=== PATIENT | female | born 1970 | race Caucasian/White ===

== ENCOUNTER → 2016-06-14 | Outpatient (CLI) | payer BC, OTHER ==
--- NOTE | 2016-06-14 09:23 | REP ---
MRI CERVICAL SPINE WITHOUT CONTRAST: HISTORY: Neck and bilateral shoulder pain. A disc bulge is present at the C5-6 level. There is mild effacement of the thecal sac without spinal cord compression. Bilateral uncinate process hypertrophy is present. This produces minimal and moderate narrowing of the right and left C5 neural foramina respectively. A disc bulge is present at the C6-7 level. There is mild effacement of the thecal sac without spinal cord compression. Uncinate process hypertrophy is present on the left. This produces mild narrowing of the left C6 neural foramen. The right C6 neural foramen is patent. There is no other disc bulge or herniation. The remaining neural foramina are patent. The spinal cord is normal in signal intensity. There is no intradural extramedullary lesion. Normal signal intensity is present in the cervical vertebral bodies. There is loss of the normal lordotic curve. A 2 cm focus of increased signal intensity on T2-weighted images is present in the right thyroid lobe. This may represent a cyst. The left thyroid lobe is normal. IMPRESSION: 1. There is cervical spondylosis at the C5-6 and C6-7 levels without spinal cord compression. 2. There is a 2 cm focus of increased signal intensity in the right thyroid lobe. This may represent a cyst. Ultrasound may be helpful for further evaluation. Signed by Tommy Nix MD 06/14/2016 09:39 A
== END ==
LOC: M RAD 07:18
PROVIDERS: ATTEND Orthopaedic Surgery
DX: M54.12 Radiculopathy, cervical region (principal)

== ENCOUNTER → 2016-11-15 | Outpatient (CLI) | payer BC, OTHER ==
--- NOTE | 2016-11-16 04:53 | REP ---
Clinical: Menorrhagia . Technique: Transabdominal pelvic ultrasound followed by transvaginal examination for better evaluation of the endometrium and adnexa with color Doppler evaluation of the ovaries. Findings: Bladder is unremarkable and measures 12.8 x 10.1 x 7.3 cm . A left deviated uterus measures 11.2 x 4.3 x 6.5 cm. The endometrial complex measures 5.4 mm thickness. Nabothian cysts in the cervix measure up to 16 mm. The endometrial complex appears normal. Bilateral ovaries are normal in appearance. Right ovary measures 2.7 x 1.6 x 2.5 cm. Left ovary measures 2.6 x 1.5 x 2.4 cm. No pelvic fluid or adnexal mass lesions. Impression: 1. Few Nabothian cysts up to 1.6 cm diameter. 2. Otherwise normal pelvic ultrasound. Signed by Enrique Parker MD 11/16/2016 04:44 A
== END ==
LOC: M WHC 13:52
PROVIDERS: ATTEND Nurse Practitioner Women's Health
DX: N88.8 Other specified noninflammatory disorders of cervix uteri (principal)

== ENCOUNTER → 2016-11-16 | Outpatient (REF) | payer OTHER | LOC: M SFHCCAPE 09:41 → M SFHCCLAY 10:31 | PROVIDERS: ATTEND Physician Assistant | DX: E78.00 Pure hypercholesterolemia, unspecified (principal) ==

== ENCOUNTER → 2016-11-30 | Outpatient (REF) | payer OTHER ==
[~2016-11-30] MED LIST: ACET30TAB PO; IBUP-1114 PO; IBUP80TA PO; LORA10TA2 PO; MULT1TAB10 PO; ROSU5TAB PO; VITA100067 PO
[2016-11-30 18:12] LABS: ALBUMIN 3.2 GM/DL (3.2-5.2); ALBUMIN/GLOBULIN RATIO 0.86 (1.00-1.93); ALKALINE PHOSPHATASE 49 U/L (45-117); ALT/SGPT 19 U/L (12-78); ANION GAP 7 MEQ/L (8-16); AST/SGOT 23 U/L (15-37); BILIRUBIN,TOTAL 0.5 MG/DL (0.2-1.0); BLOOD UREA NITROGEN 11 MG/DL (7-18); CALCIUM LEVEL 8.3 MG/DL (8.5-10.1); CARBON DIOXIDE LEVEL 25 MEQ/L (21-32); CHLORIDE LEVEL 107 MEQ/L (98-107); CHOLESTEROL LEVEL 175 MG/DL (<200); CREATININE FOR GFR 0.79 MG/DL (0.55-1.02); GLOMERULAR FILTRATION RATE > 60.0 (>58); GLUCOSE, FASTING 82 MG/DL (70-105); SODIUM LEVEL 139 MEQ/L (136-145); TOTAL PROTEIN 6.9 GM/DL (6.4-8.2); TRIGLYCERIDES LEVEL 117 MG/DL (<150)
[2016-11-30 18:14] LABS: POTASSIUM SERUM 4.6 MEQ/L (3.5-5.1)
== END ==
LOC: M SFHCCAPE 07:32
PROVIDERS: ATTEND Physician Assistant
DX: E78.00 Pure hypercholesterolemia, unspecified (principal)

== ENCOUNTER 2017-02-07 07:56 | Day surgery (SDC) | payer BC, OTHER ==
[~2017-02-07] VITALS: Ht 157.5 cm; Wt 114.8 kg
[~2017-02-07 07:56] MED LIST changes: -ACET30TAB PO; -IBUP80TA PO
[2017-02-07] MEDS ORDERED: LR 1,000 ML IV ONE (08:00)
[2017-02-07] MEDS ORDERED: MIDAZOLAM INJ 2 MG/2 ML VIAL (J2250) As Ordered ONE (09:08)
[2017-02-07] MEDS ORDERED: fentaNYL 100 MCG/2 ML INJECTION (J3010) As Ordered ONE (09:08)
[2017-02-07 09:13] LABS: CONTROL LINE UCG INT CTR LINE PRESENT
[2017-02-07 09:53] LABS: MEAN CORPUSCULAR HEMOGLOBIN 29.6 pg (27.0-33.0); MEAN CORPUSCULAR HGB CONC 33.7 g/dl (32.0-36.5); MEAN CORPUSCULAR VOLUME 87.6 fl (80.0-96.0); RED CELL DISTRIBUTION WIDTH 13.8 % (11.5-14.5); WHITE BLOOD COUNT 5.9 K/mm3 (4.0-10.0)
[2017-02-07] MEDS: LIDOCAINE 1% MDV 20ML VIAL As Ordered ONE (09:55)
[2017-02-07] MEDS ORDERED: dexameTHASONE 4 MG/ML 1ML VIAL (J1100) As Ordered ONE (10:20)
[2017-02-07] MEDS ORDERED: ONDANSETRON 4MG/2ML VIAL (J2405) As Ordered ONE (10:20)
[2017-02-07] MEDS ORDERED: KETOROLAC 60 MG/2 ML VIAL (J1885) As Ordered ONE (10:20)
[2017-02-07] MEDS ORDERED: PROPOFOL 200 MG/20 ML VIAL As Ordered ONE (10:20)
[2017-02-07] MEDS ORDERED: LIDOCAINE 2% INJ 100 MG/5 ML SDV (FOR ANES.) As Ordered ONE (10:20)
[2017-02-07] MEDS: SILVER NITRATE APPLICATOR As Ordered ONE (10:58)
[2017-02-07] MEDS ORDERED: HYDROmorphone HCL 1 MG/ML SYRINGE (J1170) IV PRN (11:15)
[2017-02-07] MEDS ORDERED: PERCOCET 5MG/325MG TAB PO PRN (11:15)
[2017-02-07] MEDS ORDERED: fentaNYL 100 MCG/2 ML INJECTION (J3010) IV PRN (11:15)
[2017-02-07] MEDS ORDERED: ONDANSETRON 4MG/2ML VIAL (J2405) IV PRN (11:15)
[2017-02-07] MEDS ORDERED: LR 1,000 ML IV SCH ×2 (11:15)
[2017-02-07] MEDS ORDERED: IBUP80TA PO (11:21)
[2017-02-07] MEDS ORDERED: ACET30TAB PO (11:22)
[2017-02-07 13:00] VITALS: BP 163/88
--- NOTE | 2017-02-07 13:59 | RO ---
DATE OF PROCEDURE: 02/07/2017 PREOPERATIVE DIAGNOSIS: Abnormal uterine bleeding. POSTOPERATIVE DIAGNOSES: 1. Abnormal uterine bleeding. 2. Intrauterine mass approximately 2 cm, pale white with vascularity (anterior , mid body of intrauterine cavity) Product Support Engineer image taken. PROCEDURE PERFORMED: 1. Diagnostic hysteroscopy converted to hysteroscopic morcellation with the MyoSure device 2. Dilation and curettage. 3. Mirena IUD insertion. SURGEON: Delmer Farrell DO, FACOG. MILL OPERATOR: None. ANESTHESIA: General via laryngeal mask anesthesia (LMA). SPECIMENS SENT TO PATHOLOGY: 1. Intrauterine mass (morcellated) 2. Endometrial curettings. ESTIMATED BLOOD LOSS: 20 mL FLUIDS REPLACED: IV lactated Ringer's 1 liter. HYSTEROSCOPIC FLUID DEFICIT: 350 mL. DRAINS: In-and-out catheter 750 mL urine output. COMPLICATIONS: None. PREOPERATIVE ANTIBIOTICS: None indicated. Lot number of the Mirena IUD: [id number]. INTRAOPERATIVE FINDINGS 1. Uterus sounded to 10 cm. 2. Intrauterine mass. Anterior mid-body of cavity, approximately 2 cm grossly (pale with vascularity). 3. IUD strings cut 3 cm from the external cervical os. INDICATION: The patient is a 46-year-old with a history of abnormal uterine bleeding. The decision was made to proceed with diagnostic, possible operative hysteroscopy and insertion of the Mirena IUD. DESCRIPTION OF PROCEDURE: The patient was counseled and consented on the risks, benefits, indications and alternatives of the procedure. Informed consent was obtained. She was taken to the operating room with an IV running and placed on operating table in the dorsal supine position. A general anesthesia was administered and the airway secured without any difficult. The patient was placed in the high lithotomy position. She was prepared and draped in normal sterile fashion. A time-out was performed per protocol. The bladder was drained with a sterile in-and-out catheter and a sterile speculum placed for good visualization of the cervix. The anterior lip of the cervix was grasped with single-tooth tenaculum and downward traction was applied. The cervix was then sequentially dilated with Oren dilators up to a number 12. The hysteroscope was placed transcervically into the intrauterine cavity with the findings noted above. The MyoSure Lite device was placed transcervically into the intrauterine cavity through the hysteroscope and the device was placed directly abutting the intrauterine mass. The MyoSure device was activated and the mass was sequentially morcellated until it was deemed to be removed and there was a smooth contour to the intrauterine cavity. No other remaining masses were noted. Bilateral fallopian tube ostia were easily visualized. Uniform surrounding endometrium was noted. The hysteroscope was removed. A sharp curette was placed transcervically into the intrauterine cavity and a sharp curettage was performed throughout the entire intrauterine cavity. The tissue was sent to pathology along with the morcellated mass for permanent section. The hysteroscope and the curette had been removed from the intrauterine cavity and the single-tooth tenaculum was removed. Tenaculum sites were cauterized with silver nitrate. Minimal bleeding from the cervical os was noted. The uterus had sounded to 10 cm and the Mirena IUD was placed under computer console operator's guidelines without any difficulty. Sponge, lap, needle, instrument counts were correct. This speculum was removed from vagina. Excellent hemostasis was noted and the patient was transferred to the postanesthesia care unit (PACU) in good stable condition. CROW
== END 2017-02-07 13:10 | disposition home or self-care (01) ==
LOC: M SDC 07:56
PROVIDERS: ATTEND Obstetrics & Gynecology
DX: N93.9 Abnormal uterine and vaginal bleeding, unspecified (principal); N85.8 Other specified noninflammatory disorders of uterus; I10 Essential (primary) hypertension; E78.5 Hyperlipidemia, unspecified; G43.909 Migraine, unspecified, not intractable, without status migrainosus; Z88.2 Allergy status to sulfonamides; Z79.899 Other long term (current) drug therapy

== ENCOUNTER → 2017-03-23 | Outpatient (CLI) | payer BC ==
[~2017-03-23] MED LIST changes: +ACET30TAB PO; +IBUP80TA PO
--- NOTE | 2017-03-23 09:47 | REP ---
BILATERAL SCREENING DIGITAL MAMMOGRAM: There are no palpable abnormalities or other breast complaints. The patient states she/he had a clinical breast exam in January 2017. Comparison studies are 03/17/2016 an 07/25/2011. The breast parenchyma is moderately dense in a heterogeneous pattern. This could obscure a lesion. There is a new 5 mm nodular density medially in the left breast on the CC view, only questionably visualized on the MLO view. There are no focal suspicious findings on the left. IMPRESSION: Incomplete. BIRADS category 0 additional imaging evaluation is needed. The patient should return for spot compression views of the right breast. The decisions for additional views, ultrasound or MRI will be based on these initial follow-up views. This mammogram was interpreted with the aid of an FDA-approved computer-aided detection system. A. Negative x-ray reports should not delay biopsy if a dominant or clinically suspicious mass is present. B. Not all breast cancers are not identified by x-ray. C. Adenosis and dense breasts may obscure an underlying neoplasm. Patient letter M0, dense breasts.
== END ==
LOC: M WHC 08:25
PROVIDERS: ATTEND Obstetrics & Gynecology Gynecologic Oncology
DX: Z12.31 Encounter for screening mammogram for malignant neoplasm of breast (principal); R92.8 Other abnormal and inconclusive findings on diagnostic imaging of breast

== ENCOUNTER → 2017-06-20 | Outpatient (REF) | payer OTHER ==
[2017-06-20 19:06] LABS: APPEARANCE, URINE CLEAR (CLEAR); BACTERIA, URINE AUTO 1+ (NEGATIVE); BILIRUBIN, URINE AUTO NEGATIVE (NEGATIVE); BLOOD, URINE BLOOD NEGATIVE (NEGATIVE); COLOR, URINE YELLOW (YELLOW); GLUCOSE, URINE (UA) AUTO NEGATIVE (NEGATIVE); KETONE, URINE AUTO NEGATIVE (NEGATIVE); LEUKOCYTE ESTERASE, URINE AUTO 1+ (NEGATIVE); MUCUS, URINE SMALL (NEGATIVE); NITRITE, URINE AUTO NEGATIVE (NEGATIVE); PROTEIN, URINE AUTO NEGATIVE (NEGATIVE); RBC, URINE AUTO 1 /HPF (0-3); SPECIFIC GRAVITY URINE AUTO 1.015 (1.002-1.035); SQUAMOUS EPITHELIAL CELL UR AU 2 /HPF (0-6); UROBILINOGEN, URINE AUTO 0.2 mg/dL (0.0-2.0); WBC, URINE AUTO 2 /HPF (0-3)
== END ==
LOC: M SFHCCAPE 07:05
DX: R42 Dizziness and giddiness (principal); R00.2 Palpitations; E55.9 Vitamin D deficiency, unspecified

== ENCOUNTER → 2017-06-26 | Outpatient (REF) | payer OTHER ==
[2017-06-26 12:29] LABS: BASO # 0.1 10^3/uL (0.0-0.2); BASO % 0.9 % (0.0-1.0); EOS # 0.3 10^3/uL (0.0-0.50); EOS % 4.5 % (0.0-3.0); HEMATOCRIT 40.9 % (36.0-47.0); HEMOGLOBIN 13.4 g/dl (12.0-16.0); IMMATURE GRANULOCYTE % 0.2 % (0-0); LYMPH # 2.3 10^3/uL (1.5-4.5); LYMPH % 39.5 % (24.0-44.0); MEAN CORPUSCULAR HEMOGLOBIN 28.4 pg (27.0-33.0); MEAN CORPUSCULAR HGB CONC 32.8 g/dl (32.0-36.5); MEAN CORPUSCULAR VOLUME 86.7 fl (80.0-96.0); MONO # 0.4 10^3/uL (0.0-0.8); MONO % 7.3 % (0.0-5.0); NEUTROPHILS # 2.7 10^3/uL (1.8-7.7); NEUTROPHILS % 47.6 % (36.0-66.0); PLATELET COUNT, AUTOMATED 279 10^3/uL (150-450); RED BLOOD COUNT 4.72 10^6/uL (4.00-5.40); RED CELL DISTRIBUTION WIDTH 13.7 % (11.5-14.5); WHITE BLOOD COUNT 5.7 10^3/uL (4.0-10.0)
[2017-06-26 12:40] LABS: TOTAL 25(OH) VITAMIN D 39.1 NG/ML (30.0-100.0)
[2017-06-26 12:41] LABS: FOLATE 21.8 NG/ML; VITAMIN B12 LEVEL 483 PG/ML
[2017-06-26 12:48] LABS: ALBUMIN 3.7 GM/DL (3.2-5.2); ALBUMIN/GLOBULIN RATIO 1.03 (1.00-1.93); ALKALINE PHOSPHATASE 58 U/L (45-117); ALT/SGPT 23 U/L (12-78); ANION GAP 4 MEQ/L (8-16); AST/SGOT 12 U/L (7-37); BILIRUBIN,TOTAL 0.3 MG/DL (0.2-1.0); BLOOD UREA NITROGEN 16 MG/DL (7-18); CALCIUM LEVEL 9.2 MG/DL (8.5-10.1); CARBON DIOXIDE LEVEL 30 MEQ/L (21-32); CHLORIDE LEVEL 106 MEQ/L (98-107); CHOLESTEROL LEVEL 197 MG/DL (<200); CHOLESTEROL RISK RATIO 2.525 (<5); CREATININE FOR GFR 0.76 MG/DL (0.55-1.30); FREE T4 1.21 NG/DL (0.76-1.46); GLOMERULAR FILTRATION RATE > 60.0 (>58); GLUCOSE, FASTING 92 MG/DL (70-100); HDL CHOLESTEROL 78 MG/DL (>40); LDL CHOLESTEROL 104.2 MG/DL (<100); NON-HDL-C 119 MG/DL; SODIUM LEVEL 140 MEQ/L (136-145); TOTAL PROTEIN 7.3 GM/DL (6.4-8.2); TRIGLYCERIDES LEVEL 74 MG/DL (<150)
== END ==
LOC: M SFHCCAPE 07:31
DX: R42 Dizziness and giddiness (principal); R00.2 Palpitations; E55.9 Vitamin D deficiency, unspecified

== ENCOUNTER → 2017-07-29 | Outpatient (CLI) | payer BC, OTHER | LOC: M SLEEP 20:00 | DX: G47.33 Obstructive sleep apnea (adult) (pediatric) (principal) | CPT/HCPCS: 95810 ==

== ENCOUNTER → 2018-03-06 | Outpatient (REF) | payer OTHER | LOC: M SFHCCLAY 07:27 | DX: M25.561 Pain in right knee (principal); M25.562 Pain in left knee; E78.5 Hyperlipidemia, unspecified; E55.9 Vitamin D deficiency, unspecified ==

== ENCOUNTER → 2018-03-07 | Outpatient (REF) | payer OTHER ==
[2018-03-07 13:14] LABS: BASO % 0.5 % (0.0-1.0); EOS # 0.3 10^3/uL (0.0-0.50); EOS % 5.2 % (0.0-3.0); HEMATOCRIT 39.5 % (36.0-47.0); IMMATURE GRANULOCYTE % 0.3 % (0-3.0); LYMPH # 2.4 10^3/uL (1.5-4.5); MEAN CORPUSCULAR HEMOGLOBIN 29.1 pg (27.0-33.0); MEAN CORPUSCULAR HGB CONC 32.9 g/dl (32.0-36.5); MEAN CORPUSCULAR VOLUME 88.6 fl (80.0-96.0); MONO # 0.5 10^3/uL (0.0-0.8); MONO % 7.6 % (0.0-5.0); NEUTROPHILS # 2.9 10^3/uL (1.8-7.7); NEUTROPHILS % 47.4 % (36.0-66.0); PLATELET COUNT, AUTOMATED 256 10^3/uL (150-450); RED BLOOD COUNT 4.46 10^6/uL (4.00-5.40); WHITE BLOOD COUNT 6.2 10^3/uL (4.0-10.0)
[2018-03-07 13:26] LABS: ESTIMATED AVERAGE GLUCOSE 114 MG/DL (60-110); HEMOGLOBIN A1c 5.6 %
[2018-03-07 13:29] LABS: ALBUMIN 3.7 GM/DL (3.2-5.2); ALKALINE PHOSPHATASE 68 U/L (45-117); ALT/SGPT 29 U/L (12-78); ANION GAP 9 MEQ/L (8-16); AST/SGOT 18 U/L (7-37); BILIRUBIN,TOTAL 0.4 MG/DL (0.2-1.0); BLOOD UREA NITROGEN 15 MG/DL (7-18); C REACTIVE PROTEIN QUANTITATIV 0.83 MG/DL (0.00-0.30); CALCIUM LEVEL 9.5 MG/DL (8.5-10.1); CARBON DIOXIDE LEVEL 25 MEQ/L (21-32); CHLORIDE LEVEL 108 MEQ/L (98-107); CHOLESTEROL LEVEL 197 MG/DL (<200); CHOLESTEROL RISK RATIO 3.126 (<5); CREATININE FOR GFR 0.72 MG/DL (0.55-1.30); GLOMERULAR FILTRATION RATE > 60.0 (>58); GLUCOSE, FASTING 79 MG/DL (70-100); HDL CHOLESTEROL 63 MG/DL (>40); LDL CHOLESTEROL 109 MG/DL (<100); NON-HDL-C 134 MG/DL; POTASSIUM SERUM 4.6 MEQ/L (3.5-5.1); RHEUMATOID FACTOR QUANT < 10.0 IU/ML (<15.0); SODIUM LEVEL 142 MEQ/L (136-145); TOTAL PROTEIN 7.4 GM/DL (6.4-8.2); TRIGLYCERIDES LEVEL 127 MG/DL (<150)
[2018-03-07 14:29] LABS: ERYTHROCYTE SEDIMENTATION RATE 30 mm/hr (0-20)
[2018-03-11 00:07] LABS: ANTINUCLEAR ANTIBODIES DIRECT Negative (Negative); Lyme Disease IgG/IgM Antibodie <0.91 ISR (0.00-0.90); Lyme Disease IgM Ab Quantitati <0.80 index (0.00-0.79)
[2018-03-11 00:07] LABS: CYCLIC CITRULLINATED PEPTIDE 25 units (0-19)
== END ==
LOC: M SFHCCAPE 07:45
DX: M25.561 Pain in right knee (principal); M25.562 Pain in left knee; E78.5 Hyperlipidemia, unspecified; E55.9 Vitamin D deficiency, unspecified
CPT/HCPCS: 84443

== ENCOUNTER → 2018-03-07 | Outpatient (CLI) | payer BC, OTHER | LOC: M CLY 07:55 | DX: M25.561 Pain in right knee (principal); M25.562 Pain in left knee | CPT/HCPCS: 73564 ==

== ENCOUNTER → 2019-04-05 | Outpatient (CLI) | payer BC, OTHER ==
[~2019-04-05] MED LIST changes: +ACET-716 PO; -ACET30TAB PO; +LORA-243 PO; -LORA10TA2 PO; -ROSU5TAB PO; +ROSU5TAB5 PO
[2019-04-05 12:33] LABS: BASO % 0.5 % (0.0-1.0); EOS # 0.3 10^3/uL (0.0-0.5); EOS % 4.5 % (0.0-3.0); HEMATOCRIT 42.5 % (36.0-47.0); HEMOGLOBIN 13.3 g/dl (12.0-15.5); LYMPH # 2.7 10^3/uL (1.5-5.0); LYMPH % 44.7 % (24.0-44.0); MEAN CORPUSCULAR HEMOGLOBIN 28.2 pg (27.0-33.0); MEAN CORPUSCULAR HGB CONC 31.3 g/dl (32.0-36.5); MONO # 0.4 10^3/uL (0.0-0.8); MONO % 5.9 % (0.0-5.0); NEUTROPHILS # 2.7 10^3/uL (1.5-8.5); NEUTROPHILS % 44.2 % (36.0-66.0); PLATELET COUNT, AUTOMATED 266 10^3/uL (150-450); RED BLOOD COUNT 4.72 10^6/uL (4.00-5.40); WHITE BLOOD COUNT 6.1 10^3/uL (4.0-10.0)
[2019-04-05 13:00] LABS: HEMOGLOBIN A1c 5.6 %
[2019-04-05 13:06] LABS: ALBUMIN 3.6 GM/DL (3.2-5.2); ALT/SGPT 24 U/L (12-78); BILIRUBIN,TOTAL 0.4 MG/DL (0.2-1.0); BLOOD UREA NITROGEN 17 MG/DL (7-18); CALCIUM LEVEL 9.2 MG/DL (8.5-10.1); CARBON DIOXIDE LEVEL 27 MEQ/L (21-32); CHLORIDE LEVEL 106 MEQ/L (98-107); CHOLESTEROL LEVEL 186 MG/DL (<200); CHOLESTEROL RISK RATIO 2.695 (<5); CREATININE FOR GFR 0.81 MG/DL (0.55-1.30); GLOMERULAR FILTRATION RATE > 60.0 (>58); GLUCOSE, FASTING 77 MG/DL (70-100); HDL CHOLESTEROL 69 MG/DL (>40); LDL CHOLESTEROL 102 MG/DL (<100); NON-HDL-C 117 MG/DL; POTASSIUM SERUM 4.1 MEQ/L (3.5-5.1); SODIUM LEVEL 141 MEQ/L (136-145); THYROID STIMULATING HORMONE 0.932 uIU/ML (0.358-3.740); TOTAL PROTEIN 7.4 GM/DL (6.4-8.2); TRIGLYCERIDES LEVEL 74 MG/DL (<150)
[2019-04-07 10:46] LABS: TOTAL 25(OH) VITAMIN D 56.2 NG/ML (30.0-100.0)
== END ==
LOC: M WUC 09:54
PROVIDERS: ATTEND Physician Assistant
DX: E55.9 Vitamin D deficiency, unspecified (principal); E78.5 Hyperlipidemia, unspecified; E66.01 Morbid (severe) obesity due to excess calories

== ENCOUNTER → 2019-05-26 | Outpatient (REF) | payer OTHER ==
[2019-05-26 16:59] LABS: BLOOD UREA NITROGEN 19 MG/DL (7-18); CALCIUM LEVEL 9.4 MG/DL (8.5-10.1); CARBON DIOXIDE LEVEL 27 MEQ/L (21-32); CHLORIDE LEVEL 104 MEQ/L (98-107); CREATININE FOR GFR 0.89 MG/DL (0.55-1.30); GLOMERULAR FILTRATION RATE > 60.0 (>58); GLUCOSE, FASTING 86 MG/DL (70-100); MAGNESIUM LEVEL 2.2 MG/DL (1.8-2.4); POTASSIUM SERUM 3.2 MEQ/L (3.5-5.1); SODIUM LEVEL 141 MEQ/L (136-145)
== END ==
LOC: M SFHCCAPE 09:19
PROVIDERS: ATTEND Physician Assistant
DX: I10 Essential (primary) hypertension (principal)

== ENCOUNTER → 2019-05-29 | Outpatient (REF) | payer OTHER | LOC: M LAB REF 18:29 | PROVIDERS: ATTEND Dermatology | DX: L82.1 Other seborrheic keratosis (principal); L82.0 Inflamed seborrheic keratosis ==

== ENCOUNTER → 2019-06-04 | Outpatient (REF) | payer OTHER | LOC: M SFHCCAPE 07:06 | PROVIDERS: ATTEND Physician Assistant | DX: E87.6 Hypokalemia (principal) ==

== ENCOUNTER → 2019-06-12 | Outpatient (REF) | payer OTHER | LOC: M SFHCCAPE 06:56 | PROVIDERS: ATTEND Physician Assistant | DX: E87.6 Hypokalemia (principal) ==

== ENCOUNTER → 2019-10-07 | Outpatient (REF) | payer OTHER ==
[2019-10-07 12:18] LABS: ALBUMIN 3.6 GM/DL (3.2-5.2); ALT/SGPT 27 U/L (12-78); BILIRUBIN,TOTAL 0.4 MG/DL (0.2-1.0); BLOOD UREA NITROGEN 17 MG/DL (7-18); CALCIUM LEVEL 9.5 MG/DL (8.5-10.1); CARBON DIOXIDE LEVEL 31 MEQ/L (21-32); CHLORIDE LEVEL 102 MEQ/L (98-107); CHOLESTEROL LEVEL 209 MG/DL (<200); CHOLESTEROL RISK RATIO 3.265 (<5); CREATININE FOR GFR 0.77 MG/DL (0.55-1.30); GLOMERULAR FILTRATION RATE > 60.0 (>58); GLUCOSE, FASTING 92 MG/DL (70-100); HDL CHOLESTEROL 64 MG/DL (>40); LDL CHOLESTEROL 116 MG/DL (<100); NON-HDL-C 145 MG/DL; POTASSIUM SERUM 3.4 MEQ/L (3.5-5.1); SODIUM LEVEL 140 MEQ/L (136-145); TOTAL 25(OH) VITAMIN D 42.9 NG/ML (30.0-100.0); TOTAL PROTEIN 7.5 GM/DL (6.4-8.2); TRIGLYCERIDES LEVEL 147 MG/DL (<150)
== END ==
LOC: M SFHCCLAY 08:18
PROVIDERS: ATTEND Physician Assistant
DX: I10 Essential (primary) hypertension (principal); E66.01 Morbid (severe) obesity due to excess calories; E55.9 Vitamin D deficiency, unspecified

== ENCOUNTER → 2019-10-08 | Outpatient (REF) | payer OTHER ==
[2019-10-08 11:59] LABS: ALBUMIN 3.3 GM/DL (3.2-5.2); ALT/SGPT 25 U/L (12-78); BILIRUBIN,TOTAL 0.4 MG/DL (0.2-1.0); BLOOD UREA NITROGEN 17 MG/DL (7-18); CALCIUM LEVEL 9.3 MG/DL (8.5-10.1); CARBON DIOXIDE LEVEL 27 MEQ/L (21-32); CHLORIDE LEVEL 102 MEQ/L (98-107); CREATININE FOR GFR 0.76 MG/DL (0.55-1.30); GLOMERULAR FILTRATION RATE > 60.0 (>58); GLUCOSE, FASTING 97 MG/DL (70-100); POTASSIUM SERUM 3.5 MEQ/L (3.5-5.1); SODIUM LEVEL 137 MEQ/L (136-145); TOTAL PROTEIN 7.3 GM/DL (6.4-8.2)
[2019-10-08 13:27] LABS: HEMOGLOBIN A1c 6.1 %
== END ==
LOC: M SFHCCAPE 08:18
PROVIDERS: ATTEND Physician Assistant
DX: I10 Essential (primary) hypertension (principal); E66.01 Morbid (severe) obesity due to excess calories

== ENCOUNTER → 2020-04-07 | Outpatient (REF) | payer OTHER ==
[2020-04-07 11:44] LABS: BASO % 0.7 % (0.0-1.0); EOS # 0.3 10^3/uL (0.0-0.5); EOS % 4.5 % (0.0-3.0); HEMATOCRIT 42.2 % (36.0-47.0); HEMOGLOBIN 13.6 g/dl (12.0-15.5); LYMPH # 2.5 10^3/uL (1.5-5.0); MEAN CORPUSCULAR HEMOGLOBIN 28.2 pg (27.0-33.0); MEAN CORPUSCULAR HGB CONC 32.2 g/dl (32.0-36.5); MEAN CORPUSCULAR VOLUME 87.6 fl (80.0-96.0); MONO # 0.5 10^3/uL (0.0-0.8); MONO % 7.5 % (0.0-5.0); NEUTROPHILS # 2.7 10^3/uL (1.5-8.5); PLATELET COUNT, AUTOMATED 252 10^3/uL (150-450); RED BLOOD COUNT 4.82 10^6/uL (4.00-5.40)
[2020-04-07 12:04] LABS: HEMOGLOBIN A1c 5.5 %
[2020-04-07 12:16] LABS: BLOOD UREA NITROGEN 16 MG/DL (7-18); CALCIUM LEVEL 9.4 MG/DL (8.5-10.1); CARBON DIOXIDE LEVEL 30 MEQ/L (21-32); CHLORIDE LEVEL 104 MEQ/L (98-107); CREATININE FOR GFR 0.79 MG/DL (0.55-1.30); GLOMERULAR FILTRATION RATE > 60.0 (>58); GLUCOSE, FASTING 96 MG/DL (70-100); POTASSIUM SERUM 3.8 MEQ/L (3.5-5.1); SODIUM LEVEL 140 MEQ/L (136-145)
[2020-04-07 12:17] LABS: ALBUMIN 3.7 GM/DL (3.2-5.2); ALT/SGPT 21 U/L (12-78); BILIRUBIN,TOTAL 0.5 MG/DL (0.2-1.0); CHOLESTEROL LEVEL 177 MG/DL (<200); CHOLESTEROL RISK RATIO 2.765 (<5); FREE T4 1.15 NG/DL (0.76-1.46); HDL CHOLESTEROL 64 MG/DL (>40); LDL CHOLESTEROL 96 MG/DL (<100); NON-HDL-C 113 MG/DL; THYROID STIMULATING HORMONE 0.961 uIU/ML (0.358-3.740); TOTAL PROTEIN 7.4 GM/DL (6.4-8.2); TRIGLYCERIDES LEVEL 85 MG/DL (<150)
[2020-04-07 12:22] LABS: TOTAL 25(OH) VITAMIN D 59.2 NG/ML (30.0-100.0)
== END ==
LOC: M SFHCCLAY 08:16
PROVIDERS: ATTEND Physician Assistant
DX: I10 Essential (primary) hypertension (principal); R73.03 Prediabetes; E78.5 Hyperlipidemia, unspecified; E55.9 Vitamin D deficiency, unspecified

== ENCOUNTER → 2020-07-22 | Outpatient (REF) | payer OTHER ==
[2020-07-22 11:59] LABS: BASO # 0.1 10^3/uL (0.0-0.2); BASO % 0.9 % (0.0-1.0); EOS # 0.3 10^3/uL (0.0-0.5); EOS % 5.2 % (0.0-3.0); HEMATOCRIT 40.8 % (36.0-47.0); HEMOGLOBIN 13.3 g/dl (12.0-15.5); LYMPH # 2.4 10^3/uL (1.5-5.0); LYMPH % 41.8 % (24.0-44.0); MEAN CORPUSCULAR HEMOGLOBIN 28.3 pg (27.0-33.0); MEAN CORPUSCULAR HGB CONC 32.6 g/dl (32.0-36.5); MEAN CORPUSCULAR VOLUME 86.8 fl (80.0-96.0); MONO # 0.5 10^3/uL (0.0-0.8); NEUTROPHILS # 2.5 10^3/uL (1.5-8.5); NEUTROPHILS % 42.9 % (36.0-66.0); PLATELET COUNT, AUTOMATED 272 10^3/uL (150-450); WHITE BLOOD COUNT 5.8 10^3/uL (4.0-10.0)
[2020-07-22 12:37] LABS: ALBUMIN 3.8 GM/DL (3.2-5.2); ALT/SGPT 21 U/L (12-78); BILIRUBIN,TOTAL 0.5 MG/DL (0.2-1.0); BLOOD UREA NITROGEN 17 MG/DL (7-18); CALCIUM LEVEL 9.3 MG/DL (8.5-10.1); CARBON DIOXIDE LEVEL 31 MEQ/L (21-32); CHLORIDE LEVEL 102 MEQ/L (98-107); CHOLESTEROL LEVEL 250 MG/DL (<200); CHOLESTEROL RISK RATIO 4.098 (<5); CREATININE FOR GFR 0.79 MG/DL (0.55-1.30); GLOMERULAR FILTRATION RATE > 60.0 (>51); GLUCOSE, FASTING 83 MG/DL (70-100); HDL CHOLESTEROL 61 MG/DL (>40); LDL CHOLESTEROL 169 MG/DL (<100); NON-HDL-C 189 MG/DL; POTASSIUM SERUM 3.6 MEQ/L (3.5-5.1); SODIUM LEVEL 139 MEQ/L (136-145); TOTAL 25(OH) VITAMIN D 62.7 NG/ML (30.0-100.0); TOTAL PROTEIN 7.3 GM/DL (6.4-8.2); TRIGLYCERIDES LEVEL 101 MG/DL (<150)
[2020-07-22 12:52] LABS: HEMOGLOBIN A1c 5.3 %
== END ==
LOC: M SFHCCLAY 07:47
PROVIDERS: ATTEND Physician Assistant
DX: R73.03 Prediabetes (principal); E78.5 Hyperlipidemia, unspecified; E55.9 Vitamin D deficiency, unspecified

== ENCOUNTER → 2021-02-10 | Outpatient (CLI) | payer BC, OTHER ==
[~2021-02-10] MED LIST changes: +CHLO125TA; +METO1TAB32; +POTA-141
== END ==
LOC: M LABSMTC 11:44
PROVIDERS: ATTEND Anesthesiology
DX: Z11.52 Encounter for screening for COVID-19 (principal); Z20.822 Contact with and (suspected) exposure to COVID-19

== ENCOUNTER → 2021-02-15 | Day surgery (SDC) | payer BC, OTHER ==
[~2021-02-15] VITALS: Ht 157.5 cm; Wt 96.6 kg
[~2021-02-15] MED LIST changes: +LIDOCAINE 2% 100MG/5ML SDV (FOR ANES.) As Ordered ONE; +NS 1,000 ML IV ONE; +propofoL 200 MG/20 ML VIAL As Ordered ONE
--- NOTE | 2021-02-15 12:28 | ROOR ---
Patient Name: Mara Richards Procedure Date: 02/15/2021 12:04 PM Date of : 1970 Age: 50 Room: [facility] Gender: Female Note Status: Finalized Procedure: Colonoscopy Indications: Screening for colorectal malignant neoplasm Providers: David Og MD Referring MD: OMAYRA Laguna [id number] Requesting Provider: Medicines: Monitored Anesthesia Care Complications: No immediate complications. Procedure: Pre-Anesthesia Assessment: - The heart rate, respiratory rate, oxygen saturations, blood pressure, adequacy of pulmonary ventilation, and response to care were monitored throughout the procedure. The Colonoscope was introduced through the anus and advanced to the terminal ileum, with identification of the appendiceal orifice and IC valve. The colonoscopy was performed without difficulty. The patient tolerated the procedure well. The quality of the bowel preparation was good. Findings: The perianal and digital rectal examinations were normal. Two sessile polyps were found in the descending colon and hepatic flexure. The polyps were 6 to 8 mm in size. These polyps were removed with a cold snare. Resection and retrieval were complete. Non-bleeding internal hemorrhoids were found during retroflexion. The hemorrhoids were medium-sized. The exam was otherwise without abnormality on direct and retroflexion views. Impression: - Two 6 to 8 mm polyps in the descending colon and at the hepatic flexure, removed with a cold snare. Resected and retrieved. - Non-bleeding internal hemorrhoids. - The examination was otherwise normal on direct and retroflexion views. Recommendation: - Repeat colonoscopy in 5 years for surveillance. Procedure Code(s): --- Professional --- 92707, Colonoscopy, flexible; with removal of tumor(s), polyp(s), or other lesion(s) by snare technique Diagnosis Code(s): --- Professional --- K64.8, Other hemorrhoids K63.5, Polyp of colon Z12.11, Encounter for screening for malignant neoplasm of colon CPT copyright 2019 [employer]. All rights reserved. The codes documented in this report are preliminary and upon creative technologist review may be revised to meet current compliance requirements. David Og MD David gO MD 02/15/2021 12:27:52 PM Electronically signed by David Og MD Number of Addenda: 0 Note Initiated On: 02/15/2021 12:04 PM Estimated Blood Loss: Estimated blood loss: none.
[2021-02-15 12:56] VITALS: BP 131/76
== END | disposition home or self-care (01) ==
LOC: M OPP 10:20
PROVIDERS: ATTEND Internal Medicine Gastroenterology
DX: Z12.11 Encounter for screening for malignant neoplasm of colon (principal); K63.5 Polyp of colon; K64.8 Other hemorrhoids; G47.30 Sleep apnea, unspecified; Z79.899 Other long term (current) drug therapy; Z88.2 Allergy status to sulfonamides

== ENCOUNTER → 2021-05-10 | Outpatient (REF) | payer OTHER ==
[~2021-05-10] MED LIST changes: -LIDOCAINE 2% 100MG/5ML SDV (FOR ANES.) As Ordered ONE; -NS 1,000 ML IV ONE; -propofoL 200 MG/20 ML VIAL As Ordered ONE
== END ==
LOC: M SFHCCAPE 14:00
PROVIDERS: ATTEND Physician Assistant
DX: J22 Unspecified acute lower respiratory infection (principal)

== ENCOUNTER → 2021-05-24 | Outpatient (REF) | payer OTHER | LOC: M LAB REF 08:21 | PROVIDERS: ATTEND Physician Assistant | DX: D22.71 Melanocytic nevi of right lower limb, including hip (principal); L82.1 Other seborrheic keratosis ==

== ENCOUNTER → 2021-11-15 | Outpatient (CLI) | payer BC, OTHER | LOC: M WHC 09:52 | PROVIDERS: ATTEND Nurse Practitioner | DX: Z12.31 Encounter for screening mammogram for malignant neoplasm of breast (principal); Z78.0 Asymptomatic menopausal state; Z85.42 Personal history of malignant neoplasm of other parts of uterus; Z80.41 Family history of malignant neoplasm of ovary; Z98.890 Other specified postprocedural states; Z92.0 Personal history of contraception ==

== ENCOUNTER → 2022-09-20 | Outpatient (REF) | payer OTHER ==
[2022-09-20 18:02] LABS: BASO % 0.6 % (0.0-1.0); EOS # 0.3 10^3/uL (0.0-0.5); HEMATOCRIT 41.2 % (36.0-47.0); HEMOGLOBIN 13.3 g/dl (12.0-15.5); LYMPH % 46.1 % (24.0-44.0); MEAN CORPUSCULAR HEMOGLOBIN 28.7 pg (27.0-33.0); MEAN CORPUSCULAR HGB CONC 32.3 g/dl (32.0-36.5); MONO # 0.5 10^3/uL (0.0-0.8); MONO % 7.2 % (2.0-8.0); NEUTROPHILS # 2.8 10^3/uL (1.5-8.5); NEUTROPHILS % 41.9 % (36.0-66.0); PLATELET COUNT, AUTOMATED 290 10^3/uL (150-450); RED BLOOD COUNT 4.63 10^6/uL (4.00-5.40); WHITE BLOOD COUNT 6.6 10^3/uL (4.0-10.0)
[2022-09-20 18:23] LABS: ALBUMIN 3.5 G/DL (3.2-5.2); ALKALINE PHOSPHATASE 53 U/L (46-116); ALT/SGPT 22 U/L (7.0-40); AST/SGOT 22 U/L (<34); BILIRUBIN,TOTAL 0.4 MG/DL (0.3-1.2); BLOOD UREA NITROGEN 13 MG/DL (9-23); CALCIUM LEVEL 9.4 MG/DL (8.5-10.1); CARBON DIOXIDE LEVEL 29 MMOL/L (20-31); CHLORIDE LEVEL 103 MMOL/L (98-107); CHOLESTEROL LEVEL 165 MG/DL (<200); CHOLESTEROL RISK RATIO 3.05 (<5); CREATININE FOR GFR 0.68 MG/DL (0.55-1.30); GLOMERULAR FILTRATION RATE > 60.0 (>51); GLUCOSE, FASTING 85 MG/DL (60-100); LDL CHOLESTEROL 96.8 MG/DL (<100); SODIUM LEVEL 138 MMOL/L (136-145); TOTAL PROTEIN 7.3 G/DL (5.7-8.2); TRIGLYCERIDES LEVEL 71 MG/DL (<150)
[2022-09-20 18:24] LABS: FREE T4 1.17 NG/DL (0.89-1.76); THYROID STIMULATING HORMONE 0.502 uIU/ML (0.55-4.78); TOTAL 25(OH) VITAMIN D 86.2 NG/ML (20.0-100.0)
[2022-09-20 18:31] LABS: HEMOGLOBIN A1c 5.2 % (4.0-6.0)
== END ==
LOC: M SFHCCAPE 07:15
PROVIDERS: ATTEND Physician Assistant
DX: E66.01 Morbid (severe) obesity due to excess calories (principal); Z68.41 Body mass index [BMI] 40.0-44.9, adult; E87.6 Hypokalemia; R73.03 Prediabetes; I10 Essential (primary) hypertension

== ENCOUNTER → 2022-11-07 | Outpatient (REF) | payer OTHER ==
[2022-11-07 19:16] LABS: FREE T4 1.07 NG/DL (0.89-1.76); THYROID STIMULATING HORMONE 0.781 uIU/ML (0.55-4.78)
== END ==
LOC: M SFHCCAPE 07:13
PROVIDERS: ATTEND Physician Assistant
DX: R79.89 Other specified abnormal findings of blood chemistry (principal)

== ENCOUNTER → 2022-11-16 | Outpatient (CLI) | payer BC, OTHER | LOC: M WHC 11:01 | PROVIDERS: ATTEND Nurse Practitioner | DX: Z12.31 Encounter for screening mammogram for malignant neoplasm of breast (principal); Z85.44 Personal history of malignant neoplasm of other female genital organs ==

== ENCOUNTER → 2022-11-23 | Outpatient (CLI) | payer BC, OTHER | LOC: M WHC 08:08 | PROVIDERS: ATTEND Nurse Practitioner | DX: R92.8 Other abnormal and inconclusive findings on diagnostic imaging of breast (principal) | CPT/HCPCS: 77065; G0279 ==

== ENCOUNTER → 2023-11-19 | Outpatient (CLI) | payer BC ==
[~2023-11-19] MED LIST changes: +ROSU5TAB40 PO; -ROSU5TAB5 PO
== END ==
LOC: M WHC 13:19
PROVIDERS: ATTEND Nurse Practitioner
DX: Z12.31 Encounter for screening mammogram for malignant neoplasm of breast (principal); R92.313 Mammographic fatty tissue density, bilateral breasts

== ENCOUNTER → 2024-09-03 | Outpatient (CLI) | payer BC ==
[~2024-09-03] MED LIST changes: -ROSU5TAB40 PO; +ROSU5TAB49 PO
== END ==
LOC: M PLAIMG 14:35
PROVIDERS: ATTEND Nurse Practitioner
DX: R20.0 Anesthesia of skin (principal); R20.2 Paresthesia of skin; M50.30 Other cervical disc degeneration, unspecified cervical region; M50.221 Other cervical disc displacement at C4-C5 level; M48.02 Spinal stenosis, cervical region

== ENCOUNTER → 2025-01-01 | Outpatient (CLI) | payer BC | LOC: M PLARAD 08:03 | PROVIDERS: ATTEND Podiatrist Foot & Ankle Surgery | DX: M79.671 Pain in right foot (principal) ==